=== PATIENT | female | born 1965 | race Two or more races ===

== ENCOUNTER 2023-09-01 09:15 | Inpatient (IN) | payer OTHER ==
[~2023-09-01] VITALS: Ht 144.8 cm; Wt 77.1 kg
[2023-09-01] MEDS ORDERED: LOSARTAN POTASS50 MG PO (10:49)
[2023-09-01] MEDS ORDERED: SYNTHROID75 MCG PO (10:50)
[2023-09-01] MEDS ORDERED: ACID REDUCER20 M1 PO (10:50)
[2023-09-01] MEDS ORDERED: LASIX40 MG PO (10:50)
[2023-09-01] MEDS ORDERED: GLIPIZIDE XL10 MG PO (10:50)
[2023-09-01] MEDS ORDERED: CARVEDILOL3.125 MG (10:51)
[2023-09-01 12:02] LABS: INR 1.13; PARTIAL THROMBOPLASTIN TIME 29.9 SECONDS (22.0-34.0); PROTHROMBIN TIME 11.8 SECONDS (9.0-11.5)
[2023-09-07 19:14] LABS: ABG PH 7.417 (7.35-7.45); ABG PO2 71.8 mmHg (80-100); ABG pCO2 37.3 mmHg (35-45); BASE EXCESS -0.6 mmol/l; BICARBONATE 23.5 mmol/l (23-25); SaO2 94.5 %; Tco2 24.6 mmol/l; allen test SATISFACTORY; o2 21 %; puncture site RADIAL LEFT
[2023-09-07 19:15] LABS: ABG PH 7.396 (7.35-7.45); ABG pCO2 40.6 mmHg (35-45); BASE EXCESS -0.5 mmol/l; BICARBONATE 24.3 mmol/l (23-25); SaO2 99.5 %
[2023-09-07 19:16] LABS: Tco2 25.6 mmol/l; allen test SATISFACTORY; o2 40 %; puncture site RADIAL LEFT
[2023-09-07 19:31] LABS: HEMOGLOBIN 10.5 g/dL (12.0-15.00); MEAN CELL VOLUME 73.7 fL (80.00-100.00); MEAN CORPUSCULAR HEMOGLOBIN 23.5 pg (27.00-32.0); MEAN CORPUSCULAR HGB CONC 31.9 g/dl (32.0-36.0); RED BLOOD COUNT 4.48 M/uL (4.00-6.00); RED CELL DISTRIBUTION WIDTH 16.5 % (11.5-14.5)
[2023-09-07 19:34] LABS: PLATELET COUNT 48 K/uL (150-450)
[2023-09-07 19:39] LABS: CALCIUM 8.2 mg/dL (8.5-10.1); CREATININE SERUM 0.62 mg/dL (0.55-1.02); GFR 99.93; POTASSIUM 3.74 mEq/L (3.5-5.1)
[2023-09-07 20:16] LABS: HEMATOCRIT 31.5 % (36.0-45.00); MEAN CELL VOLUME 74.4 fL (80.00-100.00); MEAN CORPUSCULAR HEMOGLOBIN 23.6 pg (27.00-32.0); MEAN CORPUSCULAR HGB CONC 31.7 g/dl (32.0-36.0); RED BLOOD COUNT 4.23 M/uL (4.00-6.00); RED CELL DISTRIBUTION WIDTH 15.8 % (11.5-14.5)
[2023-09-07 20:18] LABS: PLATELET COUNT 44 K/uL (150-450)
[2023-09-08] MEDS ORDERED: ATORVASTATIN CA20 MG (07:47)
[2023-09-08] MEDS ORDERED: FOLIC ACID1 MG (07:47)
[2023-09-08] MEDS ORDERED: GLIPIZIDE5 MG (07:47)
[2023-09-08] MEDS ORDERED: VITAMIN D31250 MCG (07:48)
== END 2023-09-08 09:50 | disposition home or self-care (01) | DRG 376 ==
LOC: O/R 09-07 05:45 → SURH 09-07 07:00 → O/R 09-08 09:50
PROVIDERS: Anesthesiology; ADMIT Colon & Rectal Surgery; ATTEND Colon & Rectal Surgery
DX: C20 Malignant neoplasm of rectum (principal); Z53.09 Procedure and treatment not carried out because of other contraindication; I49.8 Other specified cardiac arrhythmias

== ENCOUNTER 2023-10-05 08:00 | Outpatient (CLI) | payer OTHER ==
[~2023-10-05 08:00] MED LIST: ACID REDUCER20 M1 PO; ATORVASTATIN CA20 MG; CARVEDILOL3.125 MG; FOLIC ACID1 MG; GLIPIZIDE XL10 MG PO; GLIPIZIDE5 MG; LASIX40 MG PO; LOSARTAN POTASS50 MG PO; SYNTHROID75 MCG PO; VITAMIN D31250 MCG
[2023-10-05 10:42] LABS: PH,URINE 7.5 (5.0-8.0); URINE APPEARANCE Clear; URINE BILIRRUBIN Negative (NEGATIVE); URINE BLOOD Negative; URINE COLOR Yellow; URINE GLUCOSE Negative (NEGATIVE); URINE LEUKOCYTE Trace; URINE NITRATE Negative; URINE PROTEIN Negative (NEGATIVE)
[2023-10-05 10:43] LABS: URINE BACTERIA 1244.8 uL (0.0-1933); URINE EPITHELIAL CELLS 43.5 uL (0.0-38.8); URINE RBC 3.8 uL (0.0-20.8); URINE WBC 20.3 uL (0.0-23.2)
[2023-10-05 11:09] LABS: HEMATOCRIT 32.8 % (36.0-45.00); HEMOGLOBIN 10.4 g/dL (12.0-15.00); MEAN CELL VOLUME 71.9 fL (80.00-100.00); MEAN CORPUSCULAR HEMOGLOBIN 22.8 pg (27.00-32.0); MEAN CORPUSCULAR HGB CONC 31.6 g/dl (32.0-36.0); RED BLOOD COUNT 4.57 M/uL (4.00-6.00)
[2023-10-05 11:31] LABS: ALBUMIN 3.5 gm/dL (3.4-5.0); BILIRUBIN TOTAL 0.97 mg/dL (0.3-1.2); CALCIUM 8.8 mg/dL (8.5-10.1); CREATININE SERUM 0.5 mg/dL (0.55-1.02); GFR 128.09; GLOBULINA 3.7 G/DL (2.4-3.5); POTASSIUM 3.82 mEq/L (3.5-5.1); TOTAL PROTEIN 7.2 gm/dL (6.4-8.2)
[2023-10-05 11:35] LABS: INR 1.12; PARTIAL THROMBOPLASTIN TIME 29.9 SECONDS (22.0-34.0); PROTHROMBIN TIME 11.7 SECONDS (9.0-11.5)
[2023-10-05 12:04] LABS: PLATELET COUNT 43 K/uL (150-450)
== END 2023-10-05 08:01 | disposition home or self-care (01) ==
LOC: LAB 08:00 → EDSTATUS 10-12 08:45 → SURH 10-12 08:45
PROVIDERS: ATTEND Colon & Rectal Surgery
DX: K92.1 Melena (principal); Z85.048 Personal history of other malignant neoplasm of rectum, rectosigmoid junction, and anus

== ENCOUNTER 2023-10-10 13:53 | Inpatient (IN) | payer OTHER ==
[~2023-10-10] VITALS: Ht 147.3 cm; Wt 77.1 kg
--- NOTE | 2023-10-10 14:03 | NUR ---
PACIENTE ALERTA Y ORIENTADA X 3. REFIERE MIRACLEHaylie DENIS LE INDICO PASAR POR PREMA DE EMERGENCIAS PARA SER HOSPITALIZADA, ADMINISTRAR PLAQUETAS Y SER OPERADA EL TRUDY. PACIENTE REFIERE NO LE ENTRGO DOCUMENTOS PARA ADMISION.
[2023-10-10] MEDS ORDERED: 0.9 % SODIUM CHLORIDE 1,000 ML IV STA (15:53)
[2023-10-10 16:18] LABS: URINE APPEARANCE Clear; URINE BILIRRUBIN Small (NEGATIVE); URINE BLOOD Negative; URINE COLOR Dark Yellow; URINE GLUCOSE Negative (NEGATIVE); URINE LEUKOCYTE Trace; URINE NITRATE Negative; URINE PROTEIN Trace (NEGATIVE)
[2023-10-10 16:19] LABS: URINE BACTERIA 321.2 uL (0.0-1933); URINE RBC 32.7 uL (0.0-20.8)
[2023-10-10 16:26] LABS: HEMATOCRIT 33.5 % (36.0-45.00); HEMOGLOBIN 10.6 g/dL (12.0-15.00); MEAN CELL VOLUME 71.5 fL (80.00-100.00); MEAN CORPUSCULAR HEMOGLOBIN 22.6 pg (27.00-32.0); MEAN CORPUSCULAR HGB CONC 31.7 g/dl (32.0-36.0); RED BLOOD COUNT 4.68 M/uL (4.00-6.00); RED CELL DISTRIBUTION WIDTH 16.5 % (11.5-14.5)
--- NOTE | 2023-10-10 16:30 | NUR ---
PACIENTE EVALUADA POR DR FUENTES QUIEN ORDENA TRATAMIENTO MEDICO, SE LE ORIENTA A PACIENTE SOBRE EL MISMO Y VERBALIZA ENTENDER, SE LE COLECTAN MUESTRAS Y SE CANALIZA BAJO MEDIDAS ASEPTICAS, SE LE COLOCA IV JINA ORDEN Y SE LE REALIZA EKG
[2023-10-10 16:51] LABS: CALCIUM 9.2 mg/dL (8.5-10.1); CREATININE SERUM 0.58 mg/dL (0.55-1.02); GFR 107.93; POTASSIUM 3.63 mEq/L (3.5-5.1)
[2023-10-10 16:59] LABS: INR 1.2; PARTIAL THROMBOPLASTIN TIME 30.8 SECONDS (22.0-34.0); PROTHROMBIN TIME 12.4 SECONDS (9.0-11.5)
[2023-10-10 17:02] LABS: URINE WBC 1.6 uL (0.0-23.2)
[2023-10-10 17:12] LABS: PLATELET COUNT 43 K/uL (150-450)
[2023-10-10] MEDS ORDERED: FAMOTIDINE/PF 20 MG/2 ML VIAL IV SCH (18:57)
[2023-10-10] MEDS ORDERED: ENALAPRILAT DIHYDRATE 1.25 MG/ML VIAL IV PRN (19:00)
[2023-10-10] MEDS ORDERED: 0.9 % SODIUM CHLORIDE 1,000 ML IV SCH (19:15)
[2023-10-10] MEDS ORDERED: DEXTROSE 50 % IN WATER 0.5 G/ML DISP.SYRIN IV PRN (19:30)
[2023-10-10] MEDS ORDERED: INSULIN LISPRO 1,000 UNIT/10 ML UNITS SUBCUTANEO PRN (19:30)
[2023-10-11] MEDS ORDERED: ACETAMINOPHEN 500 MG GEL..CAP PO PRN (10:15)
[2023-10-11] MEDS ORDERED: FUROsemide 20 MG/2 ML VIAL IV PRN (10:15)
[2023-10-12 01:35] LABS: HEMATOCRIT 29.4 % (36.0-45.00); MEAN CELL VOLUME 71.8 fL (80.00-100.00); MEAN CORPUSCULAR HGB CONC 32.1 g/dl (32.0-36.0); RED BLOOD COUNT 4.09 M/uL (4.00-6.00); RED CELL DISTRIBUTION WIDTH 16.2 % (11.5-14.5)
[2023-10-12 01:42] LABS: PLATELET COUNT 58 K/uL (150-450)
[2023-10-12 01:43] LABS: HEMOGLOBIN 9.4 g/dL (12.0-15.00); MEAN CORPUSCULAR HEMOGLOBIN 22.9 pg (27.00-32.0)
[2023-10-12 01:57] LABS: INR 1.23; PROTHROMBIN TIME 12.7 SECONDS (9.0-11.5)
[2023-10-12] MEDS ORDERED: LEVOTHYROXINE SODIUM 75 MCG TABLET PO SCH (06:00)
[2023-10-12 08:05] LABS: HEMATOCRIT 30.7 % (36.0-45.00); HEMOGLOBIN 9.8 g/dL (12.0-15.00); MEAN CORPUSCULAR HEMOGLOBIN 22.7 pg (27.00-32.0); RED BLOOD COUNT 4.33 M/uL (4.00-6.00); RED CELL DISTRIBUTION WIDTH 16.5 % (11.5-14.5)
[2023-10-12 08:07] LABS: PLATELET COUNT 51 K/uL (150-450)
[2023-10-12] MEDS ORDERED: LOSARTAN POTASSIUM 50 MG TABLET PO SCH (09:00)
[2023-10-12 11:05] LABS: RH POSITIVE
== END 2023-10-12 18:29 | disposition home or self-care (01) | DRG 809 ==
LOC: ER 13:53 → SURH 19:30
PROVIDERS: General Practice; ADMIT Internal Medicine; ATTEND Internal Medicine
PROC: 30233R1 Transfusion of Nonautologous Platelets into Peripheral Vein, Percutaneous Approach (ICD-10-PCS; principal; 2023-10-11)
DX: D61.818 Other pancytopenia (principal); C20 Malignant neoplasm of rectum; D69.6 Thrombocytopenia, unspecified; D64.89 Other specified anemias; D72.819 Decreased white blood cell count, unspecified; I10 Essential (primary) hypertension; E11.9 Type 2 diabetes mellitus without complications; E03.9 Hypothyroidism, unspecified; Z79.84 Long term (current) use of oral hypoglycemic drugs

== ENCOUNTER 2024-03-23 06:00 | Outpatient (CLI) | payer OTHER ==
[~2024-03-23] VITALS: Ht 134.6 cm; Wt 82.1 kg
[2024-03-23 10:50] LABS: URINE APPEARANCE Clear; URINE BILIRRUBIN Negative (NEGATIVE); URINE BLOOD Negative; URINE COLOR Yellow; URINE GLUCOSE Negative (NEGATIVE); URINE KETONE Negative (NEGATIVE); URINE LEUKOCYTE Negative; URINE NITRATE Negative; URINE PROTEIN Negative (NEGATIVE); URINE UROBILINOGEN 0.2 E.U./dl
[2024-03-23 10:53] LABS: URINE BACTERIA 65.4 uL (0.0-1933); URINE EPITHELIAL CELLS 2.9 uL (0.0-38.8); URINE WBC 7.8 uL (0.0-23.2)
[2024-03-23 10:58] LABS: URINE RBC 0.9 uL (0.0-20.8)
[2024-03-23 11:04] LABS: HEMATOCRIT 28.5 % (36.0-45.00); HEMOGLOBIN 9.2 g/dL (12.0-15.00); MEAN CELL VOLUME 74.1 fL (80.00-100.00); MEAN CORPUSCULAR HEMOGLOBIN 23.9 pg (27.00-32.0); MEAN CORPUSCULAR HGB CONC 32.2 g/dl (32.0-36.0); RED BLOOD COUNT 3.85 M/uL (4.00-6.00)
[2024-03-23 11:06] LABS: PLATELET COUNT 118 K/uL (150-450); RED CELL DISTRIBUTION WIDTH 19.9 % (11.5-14.5)
[2024-03-23 11:07] LABS: INR 1.16; PARTIAL THROMBOPLASTIN TIME 26.6 SECONDS (22.0-34.0)
[2024-03-23 11:33] LABS: ALBUMIN 3.8 gm/dL (3.4-5.0); BILIRUBIN TOTAL 1.49 mg/dL (0.3-1.2); CREATININE SERUM 2.11 mg/dL (0.55-1.02); GFR 24.23; GLOBULINA 3.5 G/DL (2.4-3.5); POTASSIUM 3.69 mEq/L (3.5-5.1); TOTAL PROTEIN 7.3 gm/dL (6.4-8.2)
[2024-03-24] MEDS ORDERED: PROMACTA25 MG (15:39)
[2024-03-24] MEDS ORDERED: PREDNISONE10 M2 (15:39)
== END 2024-03-23 06:10 | disposition home or self-care (01) ==
LOC: LAB 06:00 → SURG 03-29 08:45 → EDSTATUS 03-29 08:45
PROVIDERS: ATTEND Colon & Rectal Surgery
DX: C20 Malignant neoplasm of rectum (principal); Z85.048 Personal history of other malignant neoplasm of rectum, rectosigmoid junction, and anus; K92.1 Melena

== ENCOUNTER 2024-03-24 15:29 | Inpatient (IN) | payer OTHER ==
[~2024-03-24] VITALS: Ht 154.9 cm; Wt 179.6 kg
[2024-03-24] MEDS ORDERED: PREDNISONE10 M2 (15:39)
[2024-03-24] MEDS ORDERED: PROMACTA25 MG (15:39)
[2024-03-24] MEDS ORDERED: SODIUM CHLORIDE 0.45 % 500 ML IV ONE (16:15)
[2024-03-24 17:05] LABS: HEMATOCRIT 28.4 % (36.0-45.00); HEMOGLOBIN 9.3 g/dL (12.0-15.00); MEAN CELL VOLUME 74.1 fL (80.00-100.00); MEAN CORPUSCULAR HEMOGLOBIN 24.4 pg (27.00-32.0); MEAN CORPUSCULAR HGB CONC 32.9 g/dl (32.0-36.0); PLATELET COUNT 147 K/uL (150-450); RED BLOOD COUNT 3.83 M/uL (4.00-6.00); RED CELL DISTRIBUTION WIDTH 19.9 % (11.5-14.5)
[2024-03-24 17:12] LABS: ALBUMIN 3.7 gm/dL (3.4-5.0); BILIRUBIN TOTAL 1.44 mg/dL (0.3-1.2); CALCIUM 8.5 mg/dL (8.5-10.1); CREATININE SERUM 2.18 mg/dL (0.55-1.02); GFR 23.33; GLOBULINA 3.8 G/DL (2.4-3.5); POTASSIUM 3.03 mEq/L (3.5-5.1); TOTAL PROTEIN 7.5 gm/dL (6.4-8.2)
[2024-03-24 17:35] LABS: URINE APPEARANCE Clear; URINE BILIRRUBIN Negative (NEGATIVE); URINE BLOOD Negative; URINE COLOR Yellow; URINE GLUCOSE Negative (NEGATIVE); URINE KETONE Negative (NEGATIVE); URINE LEUKOCYTE Negative; URINE NITRATE Negative; URINE PROTEIN Negative (NEGATIVE); URINE UROBILINOGEN 0.2 E.U./dl
[2024-03-24 17:36] LABS: URINE EPITHELIAL CELLS 6.3 uL (0.0-38.8)
[2024-03-24 17:37] LABS: URINE CAST 0.15 uL (0.0-1.40); URINE RBC 1.8 uL (0.0-20.8)
[2024-03-24] MEDS ORDERED: ACETAMINOPHEN 500 MG GEL..CAP PO PRN (20:00)
[2024-03-24] MEDS ORDERED: hydrALAZINE HCL 20 MG VIAL IV PRN (20:00)
[2024-03-24] MEDS ORDERED: 0.9 % SODIUM CHLORIDE 1,000 ML IV SCH (20:00)
[2024-03-24] MEDS ORDERED: DIPHENHYDRAMINE HCL 50 MG/ML VIAL 1ML IV PRN (20:00)
[2024-03-24] MEDS ORDERED: DEXTROSE 50 % IN WATER 0.5 G/ML DISP.SYRIN IV PRN (20:00)
[2024-03-24] MEDS ORDERED: INSULIN LISPRO 1,000 UNIT/10 ML UNITS SUBCUTANEO PRN (20:00)
[2024-03-24] MEDS ORDERED: METHYLPREDNISOLONE SOD SUCC 40 MG VIAL IV PRN (20:00)
[2024-03-24] MEDS ORDERED: ONDANSETRON HCL 4 MG in 0.9 % SODIUM CHLORIDE 50 ML IV PRN (20:00)
[2024-03-24] MEDS ORDERED: FUROsemide 20 MG/2 ML VIAL IV SCH (20:00)
[2024-03-24] MEDS ORDERED: CARVEDILOL 3.125 MG TABLET PO SCH (20:02)
[2024-03-24] MEDS ORDERED: POTASSIUM BICARBONATE/CIT AC 25 MEQ TABLET.EFF PO ONE (20:15)
[2024-03-24] MEDS ORDERED: MORPHINE SULFATE 2 MG/ML CARTRIDGE IV PRN (20:15)
[2024-03-24] MEDS ORDERED: FAMOTIDINE/PF 20 MG in 0.9 % SODIUM CHLORIDE 8 ML IV PUSH SCH (21:00)
[2024-03-25] MEDS ORDERED: LEVOTHYROXINE SODIUM 75 MCG TABLET PO SCH (06:00)
[2024-03-25 07:30] LABS: ALBUMIN 3.1 gm/dL (3.4-5.0); BILIRUBIN TOTAL 1.38 mg/dL (0.3-1.2); BILIRUBIN,CONJUGATED 0.37 mg/dL (0.0-0.2); BILIRUBIN,UNCONJUGATED 1.01 mg/dL (0.0-0.6); CALCIUM 8.1 mg/dL (8.5-10.1); CHOL HDL RATIO 4.3 (0-5.0); CREATININE SERUM 2.41 mg/dL (0.55-1.02); GFR 20.78; GLOBULINA 2.9 G/DL (2.4-3.5); POTASSIUM 3.78 mEq/L (3.5-5.1)
[2024-03-25 07:37] LABS: C-REACTIVE PROTEIN 0.29 MG/DL (0.00-0.29)
[2024-03-25 07:51] LABS: INR 1.18; PARTIAL THROMBOPLASTIN TIME 22.8 SECONDS (22.0-34.0); PROTHROMBIN TIME 12.2 SECONDS (9.0-11.5)
[2024-03-25 07:54] LABS: URINE BACTERIA 279.6 uL (0.0-1933); URINE EPITHELIAL CELLS 12.9 uL (0.0-38.8); URINE WBC 5.7 uL (0.0-23.2)
[2024-03-25 08:17] LABS: PH,URINE 6.5 (5.0-8.0); URINE APPEARANCE Clear; URINE BILIRRUBIN Negative (NEGATIVE); URINE BLOOD Negative; URINE COLOR Yellow; URINE GLUCOSE Negative (NEGATIVE); URINE KETONE Negative (NEGATIVE); URINE LEUKOCYTE Negative; URINE NITRATE Negative; URINE PROTEIN Negative (NEGATIVE); URINE UROBILINOGEN 0.2 E.U./dl
[2024-03-25 08:26] LABS: URINE RBC 0.9 uL (0.0-20.8)
[2024-03-25] MEDS ORDERED: LOSARTAN POTASSIUM 50 MG TABLET PO SCH (09:00)
[2024-03-25] MEDS ORDERED: ENOXAPARIN SODIUM 40 MG/0.4 ML SYRINGE SUBCUTANEO SCH (09:00)
[2024-03-25] MEDS ORDERED: PREDNISONE 10 MG TABLET PO SCH (09:00)
[2024-03-25] MEDS ORDERED: CHOLESTYRAMINE/ASPARTAME LIGHT 4 G/PKT PACKET PO SCH (09:00)
[2024-03-25] MEDS ORDERED: PATIENTS OWN MEDICATION (MEDICAMENTO EN PISO) PO SCH (09:00)
[2024-03-25 09:07] LABS: HEMATOCRIT 24.2 % (36.0-45.00); MEAN CELL VOLUME 73.8 fL (80.00-100.00); RED BLOOD COUNT 3.28 M/uL (4.00-6.00); RED CELL DISTRIBUTION WIDTH 19.4 % (11.5-14.5)
[2024-03-25 09:14] LABS: COL ADP 68 SECONDS (56-102)
[2024-03-25 11:14] LABS: MEAN CORPUSCULAR HEMOGLOBIN 24.3 pg (27.00-32.0); PLATELET COUNT 98 K/uL (150-450)
[2024-03-25] MEDS ORDERED: POTASSIUM CHLORIDE 8 MEQ TABLET PO SCH (13:00)
[2024-03-26 08:38] LABS: HEMATOCRIT 24.7 % (36.0-45.00); MEAN CELL VOLUME 74.1 fL (80.00-100.00); MEAN CORPUSCULAR HGB CONC 32.8 g/dl (32.0-36.0); RED BLOOD COUNT 3.33 M/uL (4.00-6.00); RED CELL DISTRIBUTION WIDTH 19.5 % (11.5-14.5)
[2024-03-26] MEDS ORDERED: FUROsemide 20 MG/2 ML VIAL IV SCH (09:00)
[2024-03-26 09:03] LABS: MEAN CORPUSCULAR HEMOGLOBIN 24.3 pg (27.00-32.0)
[2024-03-26 09:04] LABS: HEMOGLOBIN 8.1 g/dL (12.0-15.00)
[2024-03-26 09:05] LABS: PLATELET COUNT 98 K/uL (150-450)
[2024-03-26 09:23] LABS: ALBUMIN 3.2 gm/dL (3.4-5.0); BILIRUBIN TOTAL 1.31 mg/dL (0.3-1.2); CALCIUM 8.1 mg/dL (8.5-10.1); CREATININE SERUM 2.14 mg/dL (0.55-1.02); GFR 23.84; GLOBULINA 2.9 G/DL (2.4-3.5); POTASSIUM 3.6 mEq/L (3.5-5.1); TOTAL PROTEIN 6.1 gm/dL (6.4-8.2)
[2024-03-26] MEDS ORDERED: DIATRIZOATE MEGLUMINE, SODIUM 30 ML BOTTLE PO STA (14:26)
[2024-03-28] MEDS ORDERED: INSULIN LISPRO 1,000 UNIT/10 ML UNITS SUBCUTANEO PRN (05:00)
[2024-03-28 08:26] LABS: HEMOGLOBIN 10.1 g/dL (12.0-15.00); MEAN CELL VOLUME 76.7 fL (80.00-100.00); MEAN CORPUSCULAR HEMOGLOBIN 24.9 pg (27.00-32.0); MEAN CORPUSCULAR HGB CONC 32.5 g/dl (32.0-36.0); RED BLOOD COUNT 4.04 M/uL (4.00-6.00); RED CELL DISTRIBUTION WIDTH 18.5 % (11.5-14.5)
[2024-03-28 08:33] LABS: PLATELET COUNT 90 K/uL (150-450)
[2024-03-28 08:51] LABS: CALCIUM 8.7 mg/dL (8.5-10.1); CREATININE SERUM 2.01 mg/dL (0.55-1.02); GFR 25.62; POTASSIUM 4.21 mEq/L (3.5-5.1)
[2024-03-28] MEDS ORDERED: ENOXAPARIN SODIUM 30 MG/0.3 ML SYRINGE SUBCUTANEO SCH (09:00)
[2024-03-29] MEDS ORDERED: FAMOtidine 20 MG TABLET PO SCH (09:00)
[2024-03-29] MEDS ORDERED: METRONIDAZOLE/SODIUM CHLORIDE 500 MG/100 ML PIGGYBACK IV SCH (13:15)
[2024-03-29] MEDS ORDERED: CEFTRIAXONE SODIUM 2,000 MG VIAL IV SCH (13:15)
[2024-03-29] MEDS ORDERED: BUPIVACAINE HCL 30 ML VIAL IJ SCH (13:15)
[2024-03-29] MEDS ORDERED: LIDOCAINE HCL 1%/EPINEPHRINE 20ML VIAL IJ SCH (13:15)
[2024-03-29 15:09] LABS: HEMOGLOBIN 9.7 g/dL (12.0-15.00); MEAN CELL VOLUME 75.8 fL (80.00-100.00); MEAN CORPUSCULAR HEMOGLOBIN 25.2 pg (27.00-32.0); MEAN CORPUSCULAR HGB CONC 33.2 g/dl (32.0-36.0); PLATELET COUNT 152 K/uL (150-450); RED BLOOD COUNT 3.83 M/uL (4.00-6.00); RED CELL DISTRIBUTION WIDTH 18.9 % (11.5-14.5)
[2024-03-29] MEDS ORDERED: OxyCODONE HCL 5 MG TABLET (ROXICODONE) PO PRN (15:45)
[2024-03-29] MEDS ORDERED: MORPHINE SULFATE 4 MG/ML CARTRIDGE IV PRN (15:45)
[2024-03-29] MEDS ORDERED: RINGERS SOLUTION,LACTATED 1,000 ML IV SCH (15:45)
[2024-03-29] MEDS ORDERED: ONDANSETRON HCL 2 MG/ML VIAL IV PRN (15:45)
[2024-03-29] MEDS ORDERED: DEXTROSE 50 % IN WATER 0.5 G/ML DISP.SYRIN IV PRN (15:45)
[2024-03-29] MEDS ORDERED: POLYETHYLENE GLYCOL 3350 17 GM BLIST.PACK PO SCH (17:00)
[2024-03-29] MEDS ORDERED: HYOSCYAMINE SULFATE 0.125 MG TAB.SUBL SL SCH (17:00)
[2024-03-29] MEDS ORDERED: GABAPENTIN 300 MG CAPSULE PO SCH (17:00)
[2024-03-29] MEDS ORDERED: CELECOXIB 200 MG CAPSULE PO SCH (17:00)
[2024-03-29] MEDS ORDERED: METOCLOPRAMIDE HCL 5 MG/ML VIAL IV SCH (17:00)
[2024-03-29 17:54] LABS: HEMATOCRIT 32.1 % (36.0-45.00); HEMOGLOBIN 10.3 g/dL (12.0-15.00); MEAN CELL VOLUME 78.1 fL (80.00-100.00); MEAN CORPUSCULAR HEMOGLOBIN 25.1 pg (27.00-32.0); MEAN CORPUSCULAR HGB CONC 32.2 g/dl (32.0-36.0); PLATELET COUNT 196 K/uL (150-450); RED BLOOD COUNT 4.12 M/uL (4.00-6.00); RED CELL DISTRIBUTION WIDTH 18.7 % (11.5-14.5)
[2024-03-29] MEDS ORDERED: SIMETHICONE 125 MG CAPSULE PO SCH (21:00)
[2024-03-29] MEDS ORDERED: FAMOTIDINE/PF 20 MG/2 ML VIAL IV PUSH SCH (21:00)
[2024-03-30] MEDS ORDERED: ACETAMINOPHEN 500 MG GEL..CAP PO SCH
[2024-03-30 07:29] LABS: HEMATOCRIT 26.2 % (36.0-45.00); MEAN CELL VOLUME 76.6 fL (80.00-100.00); RED BLOOD COUNT 3.41 M/uL (4.00-6.00); RED CELL DISTRIBUTION WIDTH 18.5 % (11.5-14.5)
[2024-03-30 07:35] LABS: HEMOGLOBIN 8.6 g/dL (12.0-15.00); MEAN CORPUSCULAR HEMOGLOBIN 25.2 pg (27.00-32.0); PLATELET COUNT 88 K/uL (150-450)
[2024-03-30 07:37] LABS: ALBUMIN 2.3 gm/dL (3.4-5.0); BILIRUBIN TOTAL 1.72 mg/dL (0.3-1.2); CALCIUM 7.6 mg/dL (8.5-10.1); CREATININE SERUM 2.54 mg/dL (0.55-1.02); GFR 19.56; GLOBULINA 2.1 G/DL (2.4-3.5); POTASSIUM 4.04 mEq/L (3.5-5.1); TOTAL PROTEIN 4.4 gm/dL (6.4-8.2)
[2024-03-30 07:38] LABS: ALBUMIN 2.3 gm/dL (3.4-5.0); CALCIUM 7.3 mg/dL (8.5-10.1); CREATININE SERUM 2.52 mg/dL (0.55-1.02); GFR 19.74; PHOSPHOROUS 6.6 mg/dL (2.5-4.9); POTASSIUM 4.1 mEq/L (3.5-5.1)
[2024-03-30 07:47] LABS: MAGNESIUM 1.2 mg/dL (1.8-2.4)
[2024-03-30] MEDS ORDERED: MAGNESIUM SULFATE IN WATER 4 GM/100 ML PIGGYBACK IV NR (08:00)
[2024-03-30] MEDS ORDERED: LACTOBACILLUS ACIDOPHILUS 1 CAP CAP PO SCH (09:00)
[2024-03-30] MEDS ORDERED: LACTULOSE 20 G/30 ML BLIST.PACK PO SCH (09:00)
[2024-03-30] MEDS ORDERED: ENOXAPARIN SODIUM 30 MG/0.3 ML SYRINGE SUBCUTANEO SCH (17:00)
[2024-03-31] MEDS ORDERED: ENOXAPARIN SODIUM 30 MG/0.3 ML SYRINGE SUBCUTANEO SCH (09:00)
[2024-03-31 15:57] LABS: HEMATOCRIT 30.8 % (36.0-45.00); HEMOGLOBIN 10.1 g/dL (12.0-15.00); MEAN CELL VOLUME 78.3 fL (80.00-100.00); MEAN CORPUSCULAR HEMOGLOBIN 25.6 pg (27.00-32.0); MEAN CORPUSCULAR HGB CONC 32.7 g/dl (32.0-36.0); RED BLOOD COUNT 3.93 M/uL (4.00-6.00); RED CELL DISTRIBUTION WIDTH 17.7 % (11.5-14.5)
[2024-03-31 16:10] LABS: PLATELET COUNT 50 K/uL (150-450)
[2024-03-31 16:12] LABS: ALBUMIN 2.4 gm/dL (3.4-5.0); BILIRUBIN TOTAL 2.12 mg/dL (0.3-1.2); CALCIUM 7.6 mg/dL (8.5-10.1); CREATININE SERUM 2.21 mg/dL (0.55-1.02); GFR 22.97; GLOBULINA 2.5 G/DL (2.4-3.5); MAGNESIUM 2.5 mg/dL (1.8-2.4); PHOSPHOROUS 4.1 mg/dL (2.5-4.9); POTASSIUM 3.8 mEq/L (3.5-5.1); TOTAL PROTEIN 4.9 gm/dL (6.4-8.2)
[2024-04-01 08:36] LABS: HEMATOCRIT 27.9 % (36.0-45.00); HEMOGLOBIN 9.2 g/dL (12.0-15.00); MEAN CELL VOLUME 78.7 fL (80.00-100.00); MEAN CORPUSCULAR HEMOGLOBIN 25.9 pg (27.00-32.0); MEAN CORPUSCULAR HGB CONC 32.9 g/dl (32.0-36.0); PLATELET COUNT 33 K/uL (150-450); RED BLOOD COUNT 3.54 M/uL (4.00-6.00); RED CELL DISTRIBUTION WIDTH 17.6 % (11.5-14.5)
[2024-04-01] MEDS ORDERED: PANTOPRAZOLE SODIUM 40 MG/VIAL VIAL IV STA (08:56)
[2024-04-01 09:53] LABS: PLT IN CITRATE 36 K/uL (150-450)
[2024-04-01 12:43] LABS: COL ADP 133 SECONDS (56-102)
[2024-04-01 12:44] LABS: COL EPI >300 SECONDS (82-175)
[2024-04-01] MEDS ORDERED: HYDROCORTISONE SODIUM SUCC/PF 100 MG VIAL IV SCH (13:00)
[2024-04-02 01:29] LABS: HEMATOCRIT 25.3 % (36.0-45.00); MEAN CELL VOLUME 76.5 fL (80.00-100.00); MEAN CORPUSCULAR HGB CONC 33.3 g/dl (32.0-36.0); RED CELL DISTRIBUTION WIDTH 18.1 % (11.5-14.5)
[2024-04-02 01:41] LABS: MEAN CORPUSCULAR HEMOGLOBIN 25.4 pg (27.00-32.0)
[2024-04-02 01:45] LABS: PLATELET COUNT 36 K/uL (150-450)
[2024-04-02 01:47] LABS: HEMOGLOBIN 8.4 g/dL (12.0-15.00); MANUAL PLATELET COUNT 42
[2024-04-02] MEDS ORDERED: PANTOPRAZOLE SODIUM 40 MG/VIAL VIAL IV SCH (06:00)
[2024-04-02 07:57] LABS: HEMATOCRIT 25.2 % (36.0-45.00); MEAN CELL VOLUME 77.4 fL (80.00-100.00); MEAN CORPUSCULAR HGB CONC 33.5 g/dl (32.0-36.0); RED BLOOD COUNT 3.25 M/uL (4.00-6.00); RED CELL DISTRIBUTION WIDTH 17.7 % (11.5-14.5)
[2024-04-02 08:06] LABS: CALCIUM 8.5 mg/dL (8.5-10.1); CREATININE SERUM 1.95 mg/dL (0.55-1.02); GFR 26.54; MAGNESIUM 2.3 mg/dL (1.8-2.4); PHOSPHOROUS 4.3 mg/dL (2.5-4.9); POTASSIUM 4.64 mEq/L (3.5-5.1)
[2024-04-02] MEDS ORDERED: METHYLPREDNISOLONE SOD SUCC 40 MG VIAL IV SCH (09:00)
[2024-04-02 09:51] LABS: MEAN CORPUSCULAR HEMOGLOBIN 25.8 pg (27.00-32.0)
[2024-04-02 09:52] LABS: HEMOGLOBIN 8.4 g/dL (12.0-15.00)
[2024-04-02 09:54] LABS: PLATELET COUNT 42 K/uL (150-450)
[2024-04-02 10:03] LABS: MANUAL PLATELET COUNT 66
[2024-04-02] MEDS ORDERED: FUROsemide 20 MG/2 ML VIAL IV STA (10:20)
[2024-04-02] MEDS ORDERED: SOD FERRIC GLUC COMPLX/SUCROSE 62.5 MG in 0.9 % SODIUM CHLORIDE 50 ML IV SCH (17:00)
[2024-04-02] MEDS ORDERED: Cyanocobalamin/Mecobalamin 1 TAB.SL SL SCH (17:00)
[2024-04-02] MEDS ORDERED: FUROsemide 20 MG/2 ML VIAL IV SCH (21:00)
[2024-04-03 06:35] LABS: HEMATOCRIT 27.3 % (36.0-45.00); HEMOGLOBIN 9.1 g/dL (12.0-15.00); MEAN CELL VOLUME 77.4 fL (80.00-100.00); MEAN CORPUSCULAR HEMOGLOBIN 25.7 pg (27.00-32.0); MEAN CORPUSCULAR HGB CONC 33.2 g/dl (32.0-36.0); RED BLOOD COUNT 3.53 M/uL (4.00-6.00)
[2024-04-03 06:53] LABS: PLATELET COUNT 61 K/uL (150-450)
[2024-04-03 07:03] LABS: CALCIUM 8.4 mg/dL (8.5-10.1); CREATININE SERUM 1.85 mg/dL (0.55-1.02); GFR 28.2; MAGNESIUM 2.3 mg/dL (1.8-2.4); PHOSPHOROUS 4.8 mg/dL (2.5-4.9); POTASSIUM 5.06 mEq/L (3.5-5.1)
[2024-04-03 07:47] LABS: MANUAL PLATELET COUNT 140
[2024-04-04] MEDS ORDERED: PREDNISONE 10 MG TABLET PO SCH (09:00)
[2024-04-04] MEDS ORDERED: PREDNISONE 10 MG TABLET PO NR (12:00)
[2024-04-04] MEDS ORDERED: PREDNISONE 5 MG TABLET PO SCH (17:00)
[2024-04-05] MEDS ORDERED: SODIUM CHLORIDE 0.45 % 1,000 ML IV SCH (09:30)
[2024-04-06] MEDS ORDERED: 0.9 % SODIUM CHLORIDE 1,000 ML IV SCH (06:15)
[2024-04-06 09:26] LABS: HEMATOCRIT 33.5 % (36.0-45.00); MEAN CORPUSCULAR HEMOGLOBIN 25.3 pg (27.00-32.0); MEAN CORPUSCULAR HGB CONC 32.9 g/dl (32.0-36.0); RED BLOOD COUNT 4.35 M/uL (4.00-6.00); RED CELL DISTRIBUTION WIDTH 17.8 % (11.5-14.5)
[2024-04-06 09:32] LABS: PLATELET COUNT 106 K/uL (150-450)
[2024-04-06 09:55] LABS: ALBUMIN 2.4 gm/dL (3.4-5.0); BILIRUBIN TOTAL 1.49 mg/dL (0.3-1.2); CALCIUM 8.2 mg/dL (8.5-10.1); CREATININE SERUM 1.2 mg/dL (0.55-1.02); GFR 46.47; GLOBULINA 3.5 G/DL (2.4-3.5); POTASSIUM 3.95 mEq/L (3.5-5.1); TOTAL PROTEIN 5.9 gm/dL (6.4-8.2)
== END 2024-04-06 12:40 | disposition home or self-care (01) | DRG 674 ==
LOC: ER 15:29 → SURG 20:23
PROVIDERS: General Practice; Internal Medicine; Internal Medicine Endocrinology, Diabetes & Metabolism; Internal Medicine Geriatric Medicine; Internal Medicine Hematology & Oncology; Nurse Practitioner Family; ADMIT Colon & Rectal Surgery; ATTEND Colon & Rectal Surgery
PROC: BT4JZZZ Ultrasonography of Kidneys and Bladder (ICD-10-PCS; 2024-03-24)
PROC: 4A12X4Z Monitoring of Cardiac Electrical Activity, External Approach (ICD-10-PCS; 2024-03-25)
PROC: BW21YZZ Computerized Tomography (CT Scan) of Abdomen and Pelvis using Other Contrast (ICD-10-PCS; 2024-03-26)
PROC: 30233N1 Transfusion of Nonautologous Red Blood Cells into Peripheral Vein, Percutaneous Approach (ICD-10-PCS; 2024-03-27)
PROC: 02HV33Z Insertion of Infusion Device into Superior Vena Cava, Percutaneous Approach (ICD-10-PCS; 2024-04-01)
PROC: 30233R1 Transfusion of Nonautologous Platelets into Peripheral Vein, Percutaneous Approach (ICD-10-PCS; 2024-04-01)
PROC: 0DTN4ZZ Resection of Sigmoid Colon, Percutaneous Endoscopic Approach (ICD-10-PCS; principal; 2024-04-05)
PROC: 0DTP4ZZ Resection of Rectum, Percutaneous Endoscopic Approach (ICD-10-PCS; 2024-04-05)
PROC: 07BC4ZZ Excision of Pelvis Lymphatic, Percutaneous Endoscopic Approach (ICD-10-PCS; 2024-04-05)
PROC: 0DBL4ZZ Excision of Transverse Colon, Percutaneous Endoscopic Approach (ICD-10-PCS; 2024-04-05)
DX: N17.9 Acute kidney failure, unspecified (principal); D61.818 Other pancytopenia; I13.0 Hypertensive heart and chronic kidney disease with heart failure and stage 1 through stage 4 chronic kidney disease, or unspecified chronic kidney disease; I50.20 Unspecified systolic (congestive) heart failure; I42.0 Dilated cardiomyopathy; E27.3 Drug-induced adrenocortical insufficiency; D64.9 Anemia, unspecified; E78.5 Hyperlipidemia, unspecified; E11.65 Type 2 diabetes mellitus with hyperglycemia; Z79.4 Long term (current) use of insulin; E03.9 Hypothyroidism, unspecified; I25.10 Atherosclerotic heart disease of native coronary artery without angina pectoris; E11.22 Type 2 diabetes mellitus with diabetic chronic kidney disease; N18.9 Chronic kidney disease, unspecified; I95.89 Other hypotension; D69.6 Thrombocytopenia, unspecified; Z85.048 Personal history of other malignant neoplasm of rectum, rectosigmoid junction, and anus; T38.0X5A Adverse effect of glucocorticoids and synthetic analogues, initial encounter; Z43.3 Encounter for attention to colostomy; N73.6 Female pelvic peritoneal adhesions (postinfective); N99.4 Postprocedural pelvic peritoneal adhesions

== ENCOUNTER 2024-04-09 22:58 | Inpatient (IN) | payer OTHER ==
[~2024-04-09] VITALS: Ht 152.4 cm; Wt 81.6 kg
[~2024-04-09 22:58] MED LIST changes: +PREDNISONE10 M2; +PROMACTA25 MG
[2024-04-10] MEDS ORDERED: MEPERIDINE HCL/PF 25 MG/ML VIAL IV STA (00:39)
[2024-04-10] MEDS ORDERED: 0.9 % SODIUM CHLORIDE 1,000 ML IV ONE (00:45)
[2024-04-10 01:42] LABS: HEMATOCRIT 34.6 % (36.0-45.00); HEMOGLOBIN 11.4 g/dL (12.0-15.00); MEAN CELL VOLUME 77.1 fL (80.00-100.00); MEAN CORPUSCULAR HEMOGLOBIN 25.3 pg (27.00-32.0); MEAN CORPUSCULAR HGB CONC 32.8 g/dl (32.0-36.0); PLATELET COUNT 134 K/uL (150-450); RED BLOOD COUNT 4.49 M/uL (4.00-6.00); RED CELL DISTRIBUTION WIDTH 18.3 % (11.5-14.5)
[2024-04-10 01:43] LABS: URINE APPEARANCE Turbid; URINE BILIRRUBIN Small (NEGATIVE); URINE BLOOD Negative; URINE COLOR Dark Yellow; URINE GLUCOSE Negative (NEGATIVE); URINE KETONE Trace (NEGATIVE); URINE LEUKOCYTE Small; URINE NITRATE Negative; URINE PROTEIN Trace (NEGATIVE)
[2024-04-10 01:49] LABS: URINE CAST 18.01 uL (0.0-1.40); URINE RBC 80.1 uL (0.0-20.8); URINE WBC 132.5 uL (0.0-23.2)
[2024-04-10 02:00] LABS: INR 1.37; PROTHROMBIN TIME 14.6 SECONDS (9.0-11.5)
[2024-04-10 02:05] LABS: ALBUMIN 1.6 gm/dL (3.4-5.0); BILIRUBIN TOTAL 1.8 mg/dL (0.3-1.2); BILIRUBIN,CONJUGATED 1.17 mg/dL (0.0-0.2); BILIRUBIN,UNCONJUGATED 0.63 mg/dL (0.0-0.6); CALCIUM 7.4 mg/dL (8.5-10.1); CREATININE SERUM 2.61 mg/dL (0.55-1.02); GFR 18.96; GLOBULINA 3.9 G/DL (2.4-3.5); POTASSIUM 5.19 mEq/L (3.5-5.1); TOTAL PROTEIN 5.5 gm/dL (6.4-8.2)
[2024-04-10 02:10] LABS: PARTIAL THROMBOPLASTIN TIME 41.6 SECONDS (22.0-34.0)
[2024-04-10 02:25] LABS: URINE BACTERIA > 9821.5 uL (0.0-1933); URINE EPITHELIAL CELLS > 201.7 uL (0.0-38.8)
[2024-04-10 02:26] LABS: URINE EPITHELIAL CELLS LOADED /HPF
[2024-04-10] MEDS ORDERED: CIPROFLOXACIN IN 5 % DEXTROSE 200 ML IV SCH (02:40)
[2024-04-10] MEDS ORDERED: METRONIDAZOLE/SODIUM CHLORIDE 100 ML IV SCH (02:40)
[2024-04-10] MEDS ORDERED: CIPROFLOXACIN IN 5 % DEXTROSE 400 MG/200 ML PIGGYBAG IV ONE ×2 (02:48→07:46)
[2024-04-10] MEDS ORDERED: METRONIDAZOLE/SODIUM CHLORIDE 500 MG/100 ML PIGGYBACK IV ONE ×2 (02:48→07:46)
[2024-04-10] MEDS ORDERED: PIPERACILLIN/TAZOBACTAM SODIUM 3.375 GM VIAL IV SCH (10:54)
[2024-04-10] MEDS ORDERED: MEPERIDINE HCL/PF 25 MG/ML VIAL IV PRN (16:45)
[2024-04-10] MEDS ORDERED: SOD FERRIC GLUC COMPLX/SUCROSE 62.5 MG in 0.9 % SODIUM CHLORIDE 50 ML IV SCH (17:00)
[2024-04-10] MEDS ORDERED: DEXTROSE 50 % IN WATER 0.5 G/ML DISP.SYRIN IV PRN (17:15)
[2024-04-10] MEDS ORDERED: INSULIN LISPRO 1,000 UNIT/10 ML UNITS SUBCUTANEO PRN (17:15)
[2024-04-10] MEDS ORDERED: 0.9 % SODIUM CHLORIDE 1,000 ML IV SCH (19:00)
[2024-04-10] MEDS ORDERED: METHYLPREDNISOLONE SOD SUCC 40 MG VIAL IV SCH (21:00)
[2024-04-11] MEDS ORDERED: LEVOTHYROXINE SODIUM 75 MCG TABLET PO SCH (06:00)
[2024-04-11 06:45] LABS: HEMATOCRIT 35.4 % (36.0-45.00); HEMOGLOBIN 11.8 g/dL (12.0-15.00); MEAN CELL VOLUME 76.4 fL (80.00-100.00); MEAN CORPUSCULAR HEMOGLOBIN 25.4 pg (27.00-32.0); MEAN CORPUSCULAR HGB CONC 33.3 g/dl (32.0-36.0); RED BLOOD COUNT 4.63 M/uL (4.00-6.00); RED CELL DISTRIBUTION WIDTH 18.9 % (11.5-14.5)
[2024-04-11 06:47] LABS: PLATELET COUNT 97 K/uL (150-450)
[2024-04-11 07:18] LABS: ALBUMIN 1.7 gm/dL (3.4-5.0); BILIRUBIN TOTAL 2.13 mg/dL (0.3-1.2); CALCIUM 7.5 mg/dL (8.5-10.1); CREATININE SERUM 2.36 mg/dL (0.55-1.02); GFR 21.29; GLOBULINA 3.7 G/DL (2.4-3.5); TOTAL PROTEIN 5.4 gm/dL (6.4-8.2)
[2024-04-11] MEDS ORDERED: PANTOPRAZOLE SODIUM 40 MG/VIAL VIAL IV SCH (07:30)
[2024-04-11 07:43] LABS: POTASSIUM 6.46 mEq/L (3.5-5.1)
[2024-04-11] MEDS ORDERED: SODIUM POLYSTYRENE SULFONATE 30G/8 TSP PO SCH (08:07)
[2024-04-11] MEDS ORDERED: FOLIC ACID 1 MG TABLET PO SCH (09:00)
[2024-04-11] MEDS ORDERED: Cyanocobalamin/Mecobalamin 1 TAB.SL SL SCH (09:00)
[2024-04-11] MEDS ORDERED: AMINO ACIDS 1 EACH TABLET PO SCH (09:00)
[2024-04-11] MEDS ORDERED: ENOXAPARIN SODIUM 30 MG/0.3 ML SYRINGE SUBCUTANEO SCH (09:00)
[2024-04-11] MEDS ORDERED: FLUDROCORTISONE ACETATE 0.1 MG TABLET PO SCH (09:00)
[2024-04-11] MEDS ORDERED: MEROPENEM 500 MG/VIAL VIAL IV SCH (13:00)
[2024-04-11] MEDS ORDERED: DEXAMETHASONE 1.5 MG PO SCH (13:36)
[2024-04-11] MEDS ORDERED: DIPHENHYDRAMINE HCL 25 MG PO SCH (13:36)
[2024-04-11] MEDS ORDERED: LIDOCAINE HCL PO SCH ×2 (13:36→17:00)
[2024-04-11] MEDS ORDERED: CALCIUM GLUCONATE 100 MG/ML VIAL IV NR (14:30)
[2024-04-11] MEDS ORDERED: DEXAMETHASONE 6 MG PO SCH (17:00)
[2024-04-11] MEDS ORDERED: DIPHENHYDRAMINE HCL 150 MG PO SCH (17:00)
[2024-04-11] MEDS ORDERED: DEXTROSE 5 % AND 0.9 % NACL 1,000 ML IV SCH (21:45)
[2024-04-12 10:16] LABS: HEMATOCRIT 30.7 % (36.0-45.00); HEMOGLOBIN 10.1 g/dL (12.0-15.00); MEAN CELL VOLUME 76.1 fL (80.00-100.00); MEAN CORPUSCULAR HGB CONC 32.8 g/dl (32.0-36.0); PLATELET COUNT 99 K/uL (150-450); RED BLOOD COUNT 4.03 M/uL (4.00-6.00)
[2024-04-12 11:27] LABS: ALBUMIN 1.5 gm/dL (3.4-5.0); BILIRUBIN TOTAL 1.88 mg/dL (0.3-1.2); CALCIUM 7.2 mg/dL (8.5-10.1); CREATININE SERUM 1.52 mg/dL (0.55-1.02); GFR 35.38; GLOBULINA 3.5 G/DL (2.4-3.5); PHOSPHOROUS 5.1 mg/dL (2.5-4.9); POTASSIUM 4.05 mEq/L (3.5-5.1)
[2024-04-12 11:28] LABS: C-REACTIVE PROTEIN 29.6 MG/DL (0.00-0.29)
[2024-04-12 11:29] LABS: MANUAL PLATELET COUNT 222
[2024-04-12 14:57] LABS: ANION GAP 15 (10.0-20.0); BLOOD UREA NITROGEN 71 mg/dL (7-18); BUN CREA RATIO 45 (7.0-25.0); CALCIUM 7.5 mg/dL (8.5-10.1); CARBON DIOXIDE 20 mEq/L (21-32); CHLORIDE 110 mmol/L (98-107); CREATININE SERUM 1.59 mg/dL (0.55-1.02); GFR 33.59; POTASSIUM 4.33 mEq/L (3.5-5.1); SODIUM 141 mmol/L (136-145); TRIGLYCERIDES 121 mg/dL (0-150); VLDL 24 (0-39)
[2024-04-12 14:58] LABS: CHOL HDL RATIO 5.6 (0-5.0); CHOLESTEROL < 50 mg/dL (0-200); GLUCOSE FASTING 225 mg/dL (65-100); HDL 9 mg/dl (40-60); LDL 17 mg/dl (0-130); OSMOLALITY SERUM 309 MOSM/KG (275-295)
[2024-04-12] MEDS ORDERED: AMINO ACIDS 4.25 %/DEXTROSE 5% 1,000 ML PERIFERAL SCH (17:00)
[2024-04-12] MEDS ORDERED: PIPERACILLIN/TAZOBACTAM SODIUM 3.375 GM VIAL IV SCH (18:00)
[2024-04-12] MEDS ORDERED: SODIUM CHLORIDE 0.45 % 1,000 ML IV SCH (21:45)
[2024-04-13 08:03] LABS: PH,URINE 5.5 (5.0-8.0); URINE APPEARANCE Clear; URINE BILIRRUBIN Negative (NEGATIVE); URINE BLOOD Large; URINE COLOR Dark Yellow; URINE GLUCOSE Negative (NEGATIVE); URINE KETONE Negative (NEGATIVE); URINE LEUKOCYTE Small; URINE NITRATE Negative; URINE PROTEIN Negative (NEGATIVE)
[2024-04-13 08:08] LABS: URINE EPITHELIAL CELLS 1.5 uL (0.0-38.8); URINE RBC 746.7 uL (0.0-20.8); URINE WBC 20.2 uL (0.0-23.2)
[2024-04-13 08:48] LABS: URINE CAST 1.37 uL (0.0-1.40)
[2024-04-13 08:50] LABS: URINE YEAST FEW /hpf
[2024-04-13] MEDS ORDERED: MORPHINE SULFATE 4 MG/ML CARTRIDGE IV ONE (11:15)
[2024-04-13] MEDS ORDERED: MEPERIDINE HCL/PF 25 MG/ML VIAL IV PRN (11:15)
[2024-04-13 11:36] LABS: ABG PH 7.361 (7.35-7.45); ABG PO2 90.3 mmHg (80-100); ABG pCO2 20.8 mmHg (35-45); BASE EXCESS -11.4 mmol/l; BICARBONATE 11.5 mmol/l (23-25); SaO2 96.2 %; Tco2 12.2 mmol/l
[2024-04-13 11:44] LABS: allen test SATISFACTORY; o2 21 %; puncture site RADIAL RIGHT
[2024-04-13] MEDS ORDERED: FUROsemide 20 MG/2 ML VIAL IV STA (12:57)
[2024-04-13] MEDS ORDERED: DILTIAZEM HCL 25 MG/5 ML VIAL IV NR (16:15)
[2024-04-13] MEDS ORDERED: PROPOFOL 10,000 MCG/ML VIAL ONE (16:36)
[2024-04-13 16:37] LABS: ABG PH 7.248 (7.35-7.45); BASE EXCESS -16.8 mmol/l; SaO2 98.9 %; Tco2 8.5 mmol/l
[2024-04-13] MEDS ORDERED: METRONIDAZOLE/SODIUM CHLORIDE 100 ML IV SCH (17:00)
[2024-04-13] MEDS ORDERED: MIDAZOLAM HCL 2 MG/2 ML VIAL IV PUSH NR (17:45)
[2024-04-13] MEDS ORDERED: ENOXAPARIN SODIUM 60 MG/0.6 ML SYRINGE SUBCUTANEO NR (17:45)
[2024-04-13] MEDS ORDERED: SODIUM BICARBONATE 50MEQ/50ML VIAL IV SCH ×2 (17:45→20:15)
[2024-04-13] MEDS ORDERED: NOREPINEPHRINE BITARTRATE 8 MG in DEXTROSE 5 % IN WATER 250 ML IV SCH (17:45)
[2024-04-13] MEDS ORDERED: SODIUM BICARBONATE 50MEQ/50ML VIAL IV ONE (18:09)
[2024-04-13 18:36] LABS: ABG PH 7.329 (7.35-7.45); ABG PO2 409.6 mmHg (80-100); ABG pCO2 20.8 mmHg (35-45); BASE EXCESS -12.8 mmol/l; BICARBONATE 10.7 mmol/l (23-25); SaO2 99.9 %; Tco2 11.3 mmol/l
[2024-04-13 19:01] LABS: HEMATOCRIT 37.2 % (36.0-45.00); HEMOGLOBIN 11.6 g/dL (12.0-15.00); MEAN CELL VOLUME 80.2 fL (80.00-100.00); MEAN CORPUSCULAR HEMOGLOBIN 25.1 pg (27.00-32.0); MEAN CORPUSCULAR HGB CONC 31.3 g/dl (32.0-36.0); PLATELET COUNT 267 K/uL (150-450); RED BLOOD COUNT 4.64 M/uL (4.00-6.00); RED CELL DISTRIBUTION WIDTH 19.3 % (11.5-14.5)
[2024-04-13 19:08] LABS: ABG pCO2 18.7 mmHg (35-45)
[2024-04-13 19:09] LABS: allen test SATISFACTORY; o2 100 %; puncture site RADIAL RIGHT
[2024-04-13 19:10] LABS: allen test SATISFACTORY; puncture site RADIAL RIGHT
[2024-04-13 19:11] LABS: o2 80 %
[2024-04-13 19:23] LABS: CALCIUM 7.7 mg/dL (8.5-10.1); CREATININE SERUM 2.45 mg/dL (0.55-1.02); GFR 20.39; POTASSIUM 4.37 mEq/L (3.5-5.1)
[2024-04-13] MEDS ORDERED: HYDROCORTISONE SODIUM SUCC/PF 200 MG in 0.9 % SODIUM CHLORIDE 250 ML IV SCH (19:30)
[2024-04-13] MEDS ORDERED: SODIUM BICARBONATE 1 MEQ/ML DISP.SYRIN 50ML IV ONE (20:15)
[2024-04-13] MEDS ORDERED: MIDAZOLAM HCL 100 MG in 0.9 % SODIUM CHLORIDE 100 ML IV SCH (20:30)
[2024-04-13] MEDS ORDERED: 0.9 % SODIUM CHLORIDE 1,000 ML IV ONE (20:45)
[2024-04-13] MEDS ORDERED: RINGERS SOLUTION,LACTATED 1,000 ML IV ONE (20:45)
[2024-04-13] MEDS ORDERED: METHYLPREDNISOLONE SOD SUCC 40 MG VIAL IV SCH (21:00)
[2024-04-13] MEDS ORDERED: INSULIN NPH HUMAN ISOPHANE 1,000 UNITS/10 ML UNITS SUBCUTANEO SCH (21:00)
[2024-04-13] MEDS ORDERED: CEFEPIME HCL 2,000 MG VIAL IV SCH (21:00)
[2024-04-13 21:33] LABS: ABG PH 7.277 (7.35-7.45); ABG pCO2 21.8 mmHg (35-45)
[2024-04-13 21:34] LABS: ABG PO2 250.8 mmHg (80-100); BASE EXCESS 14.6 mmol/l; SaO2 99.7 %; Tco2 10.6 mmol/l; allen test SATISFACTORY; o2 100 %; puncture site RADIAL RIGHT
[2024-04-13] MEDS ORDERED: 0.9 % SODIUM CHLORIDE 1,000 ML IV SCH (21:45)
[2024-04-13] MEDS ORDERED: PHENYLEPHRINE HCL 20 MG in 0.9 % SODIUM CHLORIDE 250 ML IV SCH (23:45)
[2024-04-14] MEDS ORDERED: CHLORHEXIDINE GLUCONATE 15ML BRUSH KIT MM SCH (01:00)
[2024-04-14] MEDS ORDERED: LEVOTHYROXINE SODIUM 50 MCG TABLET PO ONE (02:04)
[2024-04-14] MEDS ORDERED: LEVOTHYROXINE SODIUM 25 MCG TABLET PO ONE (02:04)
[2024-04-14 06:28] LABS: HEMATOCRIT 35.8 % (36.0-45.00); HEMOGLOBIN 10.8 g/dL (12.0-15.00); MEAN CELL VOLUME 83.1 fL (80.00-100.00); MEAN CORPUSCULAR HEMOGLOBIN 25.2 pg (27.00-32.0); MEAN CORPUSCULAR HGB CONC 30.3 g/dl (32.0-36.0); RED CELL DISTRIBUTION WIDTH 20.1 % (11.5-14.5)
[2024-04-14] MEDS ORDERED: HYDROCORTISONE SODIUM SUCC/PF 100 MG VIAL IV STA (06:54)
[2024-04-14 07:01] LABS: ALBUMIN 1.1 gm/dL (3.4-5.0); BILIRUBIN TOTAL 1.97 mg/dL (0.3-1.2); CALCIUM 7.1 mg/dL (8.5-10.1); GFR 19.13; GLOBULINA 2.9 G/DL (2.4-3.5)
[2024-04-14 07:05] LABS: CREATININE SERUM 2.59 mg/dL (0.55-1.02)
[2024-04-14 07:06] LABS: POTASSIUM 5.33 mEq/L (3.5-5.1)
[2024-04-14 07:29] LABS: PLATELET COUNT 181 K/uL (150-450)
[2024-04-14 08:06] LABS: PHOSPHOROUS 3.2 mg/dL (2.5-4.9)
[2024-04-14] MEDS ORDERED: MEROPENEM 500 MG/VIAL VIAL IV SCH (09:00)
[2024-04-14] MEDS ORDERED: CARBOXYMETHYLCELLULOSE SODIUM 1 EACH DROPERETTE OP SCH (09:00)
[2024-04-14] MEDS ORDERED: ENOXAPARIN SODIUM 80 MG/0.8 ML SYRINGE SUBCUTANEO SCH (09:00)
[2024-04-14] MEDS ORDERED: LINEZOLID IN DEXTROSE 5% 300 ML IV SCH (09:00)
[2024-04-14] MEDS ORDERED: NOREPINEPHRINE BITARTRATE 1 MG/ML AMPUL IV ONE (10:33)
[2024-04-14] MEDS ORDERED: ALBUMIN HUMAN-25 0.25GM/ML (50ML) VIAL IV ONE (11:15)
[2024-04-14] MEDS ORDERED: ANIDULAFUNGIN 100 MG VIAL IV NR (12:45)
[2024-04-14] MEDS ORDERED: HYDROCORTISONE SODIUM SUCC/PF 50 MG/ML ML IV SCH (14:00)
[2024-04-14] MEDS ORDERED: 0.9 % SODIUM CHLORIDE 1,000 ML IV SCH (16:00)
[2024-04-14 18:06] LABS: PH,URINE 5.5 (5.0-8.0); URINE APPEARANCE Cloudy; URINE BILIRRUBIN Small (NEGATIVE); URINE BLOOD Moderate; URINE COLOR Dark Yellow; URINE GLUCOSE Negative (NEGATIVE); URINE KETONE Trace (NEGATIVE); URINE LEUKOCYTE Moderate; URINE NITRATE Negative
[2024-04-14 18:10] LABS: URINE BACTERIA 147.4 uL (0.0-1933); URINE CAST 2.59 uL (0.0-1.40); URINE EPITHELIAL CELLS 29.2 uL (0.0-38.8); URINE WBC 69.5 uL (0.0-23.2)
[2024-04-14 18:30] LABS: URINE PROTEIN 300 (NEGATIVE); URINE YEAST LOADED /hpf
[2024-04-14] MEDS ORDERED: MAGNESIUM SULFATE IN WATER 50 ML IV ONE (19:10)
[2024-04-15] MEDS ORDERED: SODIUM CL 0.9% 250 ML IV.SOLN ONE (01:25)
[2024-04-15] MEDS ORDERED: ANIDULAFUNGIN 100 MG VIAL IV SCH (12:00)
== END 2024-04-15 01:50 | disposition expired | DRG 871 ==
LOC: ER 22:58 → SEC-K 04-10 08:13 → SURH 04-10 10:09 → ICU 04-13 19:01
PROVIDERS: Emergency Medicine; General Practice; Internal Medicine; Internal Medicine Infectious Disease; Internal Medicine Nephrology; Surgery; ADMIT Surgery; ATTEND Surgery
PROC: 0D9670Z Drainage of Stomach with Drainage Device, Via Natural or Artificial Opening (ICD-10-PCS; principal; 2024-04-10)
PROC: 02HV33Z Insertion of Infusion Device into Superior Vena Cava, Percutaneous Approach (ICD-10-PCS; 2024-04-10)
PROC: BW21YZZ Computerized Tomography (CT Scan) of Abdomen and Pelvis using Other Contrast (ICD-10-PCS; 2024-04-10)
PROC: 4A12X4Z Monitoring of Cardiac Electrical Activity, External Approach (ICD-10-PCS; 2024-04-11)
PROC: 0BH18EZ Insertion of Endotracheal Airway into Trachea, Via Natural or Artificial Opening Endoscopic (ICD-10-PCS; 2024-04-13)
PROC: 5A1945Z Respiratory Ventilation, 24-96 Consecutive Hours (ICD-10-PCS; 2024-04-13)
PROC: 3E043XZ Introduction of Vasopressor into Central Vein, Percutaneous Approach (ICD-10-PCS; 2024-04-14)
DX: A41.9 Sepsis, unspecified organism (principal); D65 Disseminated intravascular coagulation [defibrination syndrome]; R65.21 Severe sepsis with septic shock; K72.00 Acute and subacute hepatic failure without coma; K65.9 Peritonitis, unspecified; E27.40 Unspecified adrenocortical insufficiency; N17.9 Acute kidney failure, unspecified; E87.29 Other acidosis; E87.20 Acidosis, unspecified; E03.9 Hypothyroidism, unspecified; I50.9 Heart failure, unspecified; E87.5 Hyperkalemia; E11.9 Type 2 diabetes mellitus without complications; Z79.4 Long term (current) use of insulin; I25.10 Atherosclerotic heart disease of native coronary artery without angina pectoris; N73.9 Female pelvic inflammatory disease, unspecified; R60.0 Localized edema; B96.5 Pseudomonas (aeruginosa) (mallei) (pseudomallei) as the cause of diseases classified elsewhere; K30 Functional dyspepsia; Z66 Do not resuscitate; I11.0 Hypertensive heart disease with heart failure